=== PATIENT | female | born 1960 | race Caucasian/White ===

== ENCOUNTER 2025-03-12 22:25 | Emergency (ER) | payer OTHER, SELFPAY ==
[2025-03-12 22:27] VITALS: BP 136/61; PULSE 63; RESP 13; TEMP 36.9; O2SAT 99
--- NOTE | 2025-03-12 22:50 | ED.RN ---
Upon assessment, Pt reports multiple stressors and states I am very stressed out person and I have a lot going on right now. I get panic attacks often. notified.
--- NOTE | 2025-03-12 23:01 | EKG12_ITS ---
Test Reason : CP Blood Pressure : */* mmHG Vent. Rate : 60 BPM Atrial Rate : 60 BPM P-R Int : 130 ms QRS Dur : 102 ms QT Int : 424 ms P-R-T Axes : 65 22 38 degrees QTcB Int : 424 ms Normal sinus rhythm Nonspecific ST abnormality Abnormal ECG Confirmed by ALLISON MARI MD ([id number]), department editor EB FORD ([id number]) on 03/15/2025 6:40:41 AM Referred By: CONSUELO Confirmed By: ALLISON MARI MD
--- NOTE | 2025-03-12 23:15 | RAD_ITS ---
PROCEDURE: CHEST PA AND LATERAL 03/12/2025 REASON FOR EXAM: CHEST PAIN TECHNIQUE: CHEST PA AND LATERAL COMPARISON: None. FINDINGS: Lungs/Pleura: Clear. No pneumothorax or pleural effusion. Heart/Mediastinum: Within normal limits. No vascular congestion. Bones/Soft tissues: Mild degenerative changes of the spine. RAD/Chest PA and Lateral IMPRESSION: No acute cardiopulmonary disease. Reading Location: [id number]
[2025-03-12 23:16] LABS: Hematocrit 38.2 % (37-47); Hemoglobin 13.4 g/dL (12.0-15.0); Immature Granulocytes Count 0.050 X10^3/uL (0.0-0.0); Mean Corp Hgb Conc 35.1 g/dL (32-36); Mean Corpuscular Volume 87.0 fL (81-99); Mean Platelet Vol. 9.2 fl (6.2-12.0); NRBC Flagged by Analyzer 0 % (0-5); Platelet Count 251 K/mm3 (150-450); RBC Distribution Width CV 12.4 % (11.6-14.6); RBC Distribution Width SD 39.5 fl (35.1-43.9); Red Blood Count 4.39 M/mm3 (4.2-5.4); White Blood Count 10.3 K/mm3 (4.4-11.0)
[2025-03-12 23:52] LABS: Anion Gap 18 (5-15); BUN 12 mg/dL (4-19); BUN/Creat Ratio 14.3 RATIO (10-20); Calcium,Total 9.3 mg/dL (7.6-11.0); Carbon Dioxide 15.9 mmol/L (21.0-32.0); Chloride 107 mmol/L (98-108); Glucose 97 mg/dL (70-99); Magnesium 2.2 mg/dL (1.5-2.2); Potassium 3.4 mmol/L (3.3-5.1); Troponin T High Sensitivity 10 ng/L (<=14)
[2025-03-13] VITALS: BP 116/56; PULSE 55; RESP 18; O2SAT 96
[2025-03-13 00:15] LABS: D-Dimer Quantitative (DVT/PE) 0.27 FEU/ug/m (0.27-0.49)
[2025-03-13 01:00] VITALS: BP 110/60; PULSE 56; RESP 16; O2SAT 97
[2025-03-13 01:21] LABS: Troponin T High Sens 2 HR 10 ng/L (<=14)
--- NOTE | 2025-03-13 01:28 | EX.ED.DYSGE1 ---
HPI History of Present Illness Chief Complaint: Chest Pain Informant: patient, family and EMS Narrative Narrative: Patient is a 64-year-old female with past medical history of hypothyroidism as well as anxiety and depression. She states she has been under a great deal of stress recently and has been having intermittent bouts of faint chest discomfort with numbness and tingling into the left arm. She states she was out this evening when she had a bout of her symptoms but this time it was more intense than it has been with bouts of nausea and reported sweating and secondary to this EMS was called and she was brought in for evaluation Patient states there has been spontaneous improvement of her symptoms upon arrival to the ER [facility] Medical History (Updated 03/13/25 @ 03:[address] Manoj Vargas, DO) History of skin cancer Anxiety Depression Hypothyroidism Home Medications ?Medication ?Instructions ?Recorded ?Last Taken ?Type bupropion HCl 100 mg tablet,12 hr 100 mg PO DAILY 03/12/25 Unknown History sustained-release (Wellbutrin SR) fluoxetine 40 mg capsule 40 mg PO DAILY 03/12/25 Unknown History levothyroxine 112 mcg capsule 112 mcg PO DAILY 03/12/25 Unknown History minocycline 1 tab PO DAILY 03/12/25 Unknown History Allergy/AdvReac Type Severity Reaction Status Date / Time No Known Allergies Allergy Verified 03/12/25 22:27 Surgical History (Updated 03/12/25 @ 22:48 by Dodie Navarro) S/P LEEP (loop electrosurgical excision procedure) Social History Smoking Status: Never smoker ROS [facility] ED Constitutional Constitutional ED: Reports sweats; Denies chills or fever(s) Eyes Eyes: Denies blurry vision or change in vision ENT ENT ED: Denies sore throat Cardiovascular Cardiovascular: Reports chest pain and palpitations Respiratory/Chest Respiratory/Chest: Denies cough or dyspnea Gastrointestinal Gastrointestinal: Reports nausea; Denies abdominal pain, diarrhea or vomiting Genitourinary Genitourinary ED: Denies dysuria Musculoskeletal Musculoskeletal: Denies back pain or neck pain Integumentary Denies rash Neurologic Neurologic: Reports paresthesias; Denies headache(s) Hematologic/Lymphatic Hematologic/Lymphatic: Denies easy bleeding or easy bruising EXAM Physical Exam Const Vital Signs: 03/12/25 22:27 03/12/25 22:39 03/13/25 00:00 Temperature 98.5 F Temperature Source Oral Pulse Rate 63 55 L Respiratory Rate 13 18 Respiratory Effort Normal Non-Labored Respiratory Pattern Normal Blood Pressure 136/61 H 116/56 L Blood Pressure Mean 86 76 Pulse Ox 99 96 Oxygen Delivery Method Room Air Room Air 03/13/25 01:00 03/13/25 01:36 Temperature 98.5 F Temperature Source Pulse Rate 56 L 56 L Respiratory Rate 16 16 Respiratory Effort Respiratory Pattern Blood Pressure 110/60 115/60 Blood Pressure Mean 76 78 Pulse Ox 97 100 Oxygen Delivery Method Room Air Positive well nourished and well developed General Appearance ED: well developed; Negative for pallor HEENT HEENT Narrative: Normocephalic atraumatic Eyes PERRL and EOMs intact bilaterally General Eye ED: Negative for scleral icterus Neck supple and no JVD Chest Wall palpation of chest normal Resp normal respiratory effort and clear to auscultation bilaterally Cardio regular rate and regular rhythm Rate: other Other Details: Regular rate and rhythm without murmurs rubs or gallops Radial and carotid pulses are equal and symmetric GI normal to inspection, nondistended, normoactive bowel sounds, non-tender, non-distended and no masses Auscultation: normoactive bowel sounds Palpation: soft Extremity normal to inspection Extremity Narrative: No asymmetric edema no pitting edema negative Homans' sign bilaterally Neuro oriented x3, CN's II-XII intact bilaterally and no sensory deficits noted Sensorium / Orientation: alert Motor Exam: strength 5/5 throughout Psych mental status grossly normal Skin no rashes or lesions noted and no wounds General Skin Exam: Negative for jaundice or pallor MDM MDM MDM Narrative Medical decision making narrative: Patient arrived to the ER with stable vitals and reported spontaneous improvement of symptoms. However because of the recurrent nature and the fact symptoms are worse this evening there is concern patient is having acute coronary syndrome. Patient also could have a cardiac dysrhythmia or cardiac ectopy. There is potential that symptoms could be related to a PE or dissection or potential lung pathology such as pneumonia or pneumothorax or electrolyte abnormality. Therefore basic workup was obtained. Patient's initial and delta troponin are 10 going against ACS. She was kept on the monitor and there was an occasional PAC but no true cardiac dysrhythmia. She has no signs of electrolyte abnormality and her D-dimer is normal going against PE or dissection. Chest x-ray also reveals no acute lung. On reevaluation she states that her symptoms have been resolved since arrival to the ER. Therefore at this time with overall negative workup and spontaneous improvement of symptoms there is no need for further evaluation and she is otherwise safe for discharge History & Record Review Discussion w/independent historian: Patient and Family Lab Data Attestation: I reviewed the patient's lab results. Labs: Laboratory Results - last 24 hr 03/12/25 03/13/25 22:37 00:38 WBC 10.3 RBC 4.39 Hgb 13.4 Hct 38.2 MCV 87.0 MCH 30.5 MCHC 35.1 RDW Std Deviation 39.5 RDW Coeff of Dickson 12.4 Plt Count 251 MPV 9.2 Immature Gran % (Auto) 0.500 Neut % (Auto) 76.3 H Lymph % (Auto) 15.5 L [place] % (Auto) 6.2 Eos % (Auto) 0.7 Baso % (Auto) 0.8 Absolute Neuts (auto) 7.9 H Absolute Lymphs (auto) 1.60 Nucleated RBC % 0 D-Dimer Quant (PE/DVT) 0.27 Sodium 140 Potassium 3.4 Chloride 107 Carbon Dioxide 15.9 L Anion Gap 18 H BUN 12 Creatinine 0.82 Est GFR (MDRD) Non-Af 81 BUN/Creatinine Ratio 14.3 Glucose 97 Calcium 9.3 Magnesium 2.2 Troponin T High Sens 10 Troponin T Hi Sens 2 Hr 10 TSH 0.526 Radiography Diagnostic Testing: Clinical Impression(s) from Imaging Studies Chest X-Ray 03/12/25 23:15 IMPRESSION: No acute cardiopulmonary disease. Reading Location: [id number] Chest x-ray is interpreted by the emergency medicine physician reveals no acute infiltrate pneumothorax pleural effusion or widening of the mediastinum Discharge Plan Triage Chief Complaint: Chest Pain ED Provider: Manoj Vargas Dx/Rx/DC Orders Clinical Impression: Nonspecific chest pain, PAC (premature atrial contraction), Hypothyroidism Instructions: Your Heart's Electrical System, ED Chest Pain, Uncertain Cause Prescriptions: No Action fluoxetine 40 mg capsule 40 mg PO DAILY bupropion HCl [Wellbutrin SR] 100 mg tablet sustained-release 12 hr 100 mg PO DAILY levothyroxine 112 mcg capsule 112 mcg PO DAILY minocycline 1 tab PO DAILY Primary Care Provider: López Cam Referrals: López Cam MD [Primary Care Provider] - Activity Restrictions/Additional Instructions: Your workup today revealed no sign of active heart damage or findings concerning for a blood clot or tear. You did have a few premature atrial contractions which can be normal. Discussed with your family doctor a potential Holter monitor to ensure you are not developing an abnormal cardiac rhythm and return to the ER should you have any further concerns Print Language: Tongan Disposition Disposition: Home, Self Care Discharge Date/Time: 03/13/25 01:36
[2025-03-13 01:36] VITALS: BP 115/60; PULSE 56; RESP 16; TEMP 36.9; O2SAT 100
== END 2025-03-13 01:36 | disposition home or self-care (01) ==
PROVIDERS: Emergency Provider Emergency Medicine; PCP Family Medicine; Visit Provider Emergency Medicine
DX: R07.9 Chest pain, unspecified (principal); E03.9 Hypothyroidism, unspecified; F41.9 Anxiety disorder, unspecified; I49.1 Atrial premature depolarization; R11.0 Nausea; R20.2 Paresthesia of skin; F32.A Depression, unspecified
CPT/HCPCS: 71046; 80048; 83735; 84443; 84484; 85025; 85379; 93005; 99285; A4216